=== PATIENT | male | born 1995 | race Caucasian/White ===

== ENCOUNTER 2019-07-07 19:16 | Emergency (ER) | payer OTHER ==
[~2019-07-07] VITALS: Ht 190.5 cm; Wt 112.0 kg
--- NOTE | 2019-07-07 19:53 | NUR ---
PT FAMILY STATED PT HAS NEVER HAD A HEARING PROBLEM IN THE PAST. PT NOW CAN BARLEY HEAR PEOPLE TALKING WITH PEOPLE HAVING TO ALMOST YELL AT PT TO HAVE HIM HEAR THEM.
[2019-07-07] MEDS ORDERED: NALOXONE 0.4 MG/ML, 1ML IVPush PRN (20:30)
[2019-07-07] MEDS ORDERED: NALOXONE 0.4 MG/ML, 1ML ONE (20:32)
[2019-07-07 20:39] LABS: MEAN CORPUSCULAR HEMOGLOBIN 28.5 pg (27.5-34.5); MEAN CORPUSCULAR HGB CONC 33.6 g/dL (33.2-36.2); PLATELET COUNT 401 x10^3/uL (130-400); RED BLOOD COUNT 5.15 x10^6/uL (4.38-5.82); RED CELL DISTRIBUTION WIDTH 12.3 % (9.4-14.8)
[2019-07-07 20:48] LABS: ALANINE AMINOTRANSFERASE 59 U/L (12-78); ALBUMIN 4.1 g/dL (3.4-5.0); ANION GAP 8 mmol/L (5-15); CALCIUM 7.9 mg/dL (8.5-10.1); CHLORIDE 104 mmol/L (98-107); CREATININE 1.79 mg/dL (0.7-1.3)
[2019-07-07 20:51] LABS: ALKALINE PHOSPHATASE 64 U/L (45-117); BILIRUBIN,TOTAL 0.4 mg/dL (0.2-1.0); SALICYLATE LEVEL < 1.7 mg/dL (2.8-20.0); TOTAL PROTEIN 6.9 g/dL (6.4-8.2)
--- NOTE | 2019-07-07 20:53 | NUR ---
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 PT DENIED ANY PAIN, NUMBNESS AND TINGLING ANYHWERE IN BODY. WHEN TALKING WITH PT YOU HAVE TO REPEAT YOUR SELF MULTIPLE TIMES WITH PT SAYING "WHAT OR ONE MORE TIME". PT APPEARS TO RESPOND BETTER WHEN YOU TALK TO PT LOUDER. PT IS STILL LETHARGIC AFTER AN ADDITIONAL 0.4MG OF NARCAN BUT IS EASLY AWOKEN. PT HAVING HOT AND COLD FLASHES AND IS VISIBLEY SWEATING, WITH PT SAYING HE IS COLD THEN PT SAYING HE IS HOT WITHIN 5 MIN OF EACH OTHER.
[2019-07-07 20:57] LABS: MD YES
[2019-07-07 21:01] LABS: BAND#(MANUAL) 3.54 x10^3/uL; BANDS%(MANUAL) 17 % (0-7); LYMPH#(MANUAL) 1.46 x10^3/uL (1-3.4); LYMPHS% (MANUAL) 7 % (22-44); MONOS#(MANUAL) 1.46 x10^3/uL (0.3-2.7); MONOS% (MANUAL) 7 % (2-9); SEG#(MANUAL) 14.35 x10^3/uL (1.8-6.8); SEGS% (MANUAL) 69 % (42-75)
[2019-07-07 21:02] LABS: <PLATELET ESTIMATE> INCREASED; <PLT MORPHOLOGY> NORMAL PLT MORPH; <RBC MORPHOLOGY> NORMAL
--- NOTE | 2019-07-07 21:34 | NUR ---
PT BLOOD SUGAR AT 69, PT WAS PROVIDED OJ AND PEANUT BUTTER WITH CRACKERS AND BLOOD SUGAR WILL BE REASSESSED.
[2019-07-07 22:21] LABS: AMPHETAMINE SCREEN, URINE Negative (Negative); BARBITURATE SCREEN, URINE Negative (Negative); BENZODIAZEPINE SCREEN, URINE Negative (Negative); CANNABINOID SCREEN, URINE Negative (Negative); COCAINE SCREEN, URINE Negative (Negative); METHADONE SCREEN, URINE Negative (Negative); OPIATE SCREEN, URINE Negative (Negative)
[2019-07-07 23:17] VITALS: BP 119/72
== END 2019-07-08 00:54 | disposition home or self-care (01) ==
LOC: ED 07-08 00:45
DX: T40.0X1A Poisoning by opium, accidental (unintentional), initial encounter (principal); J96.01 Acute respiratory failure with hypoxia; F11.10 Opioid abuse, uncomplicated; Y92.89 Other specified places as the place of occurrence of the external cause
CPT/HCPCS: 36415; 71045; 80053; 80307; 85025; 96374; 99291; J2310

== ENCOUNTER 2019-09-07 02:14 | Emergency (ER) | payer OTHER ==
[~2019-09-07] VITALS: Ht 190.5 cm; Wt 109.0 kg
--- NOTE | 2019-09-07 02:50 | NUR ---
Pt placed on 4 lpm O2 to maintain SpO2 above 90%. Pt continues to sleep in the room.
[2019-09-07] MEDS ORDERED: NALOXONE 1 MG/ML, 2ML ONE ×2 (02:53→05:04)
[2019-09-07] MEDS ORDERED: NALOXONE 1 MG/ML, 2ML IVPush ONE ×2 (03:00→05:30)
--- NOTE | 2019-09-07 03:02 | NUR ---
Pt given 1 mg Narcan IV for persistent low SpO2 readings. Pt is now more awake with SpO2 of 96% at room air.
--- NOTE | 2019-09-07 03:14 | NUR ---
Pt placed on 2lpm O2 for SpO2 readings of 88% at room air post Narcan.
[2019-09-07 03:35] LABS: BASOPHILS # (AUTO) 0.04 x10^3/uL (0-0.1); BASOPHILS % (AUTO) 0 % (0-1); EOSINOPHILS # (AUTO) 0.09 x10^3/uL (0-0.4); EOSINOPHILS % (AUTO) 1 % (1-7); LYMPHOCYTES # (AUTO) 0.86 x10^3/uL (1-3.4); LYMPHOCYTES % (AUTO) 8 % (22-44); MD NO; MEAN CORPUSCULAR HEMOGLOBIN 28.4 pg (27.5-34.5); MEAN CORPUSCULAR HGB CONC 33.7 g/dL (33.2-36.2); MEAN CORPUSCULAR VOLUME 84.3 fL (81-97); MEAN PLATELET VOLUME 7.6 fL (7.4-10.4); MONOCYTES # (AUTO) 0.63 x10^3/uL (0.2-0.8); MONOCYTES % (AUTO) 6 % (2-9); NEUTROPHILS # (AUTO) 8.63 x10^3/uL (1.8-6.8); NEUTROPHILS % (AUTO) 84 % (42-75); PLATELET COUNT 342 x10^3/uL (130-400); RED CELL DISTRIBUTION WIDTH 12.9 % (9.4-14.8)
[2019-09-07 03:47] LABS: ALBUMIN 3.8 g/dL (3.4-5.0); ANION GAP 5 mmol/L (5-15); CALCIUM 8.5 mg/dL (8.5-10.1); CHLORIDE 108 mmol/L (98-107)
[2019-09-07 03:48] LABS: CREATININE 1.17 mg/dL (0.7-1.3)
--- NOTE | 2019-09-07 04:58 | NUR ---
Pt's father now at bedside and pt is more awake in room. Will trial pt off O2 and monitor.
--- NOTE | 2019-09-07 05:39 | NUR ---
Pt given Narcan again for low SpO2 readings at room air. Pt improved initially but is now on 2 lpm O2 again for SpO2 readings of 87% at room air. Will continue to monitor.
--- NOTE | 2019-09-07 06:09 | NUR ---
Pt ambulated to bathroom without assistance or complication. Pt had room air SpO2 of 88% after ambulation. Pt placed back on 2 lpm O2.
--- NOTE | 2019-09-07 06:54 | NUR ---
REPORT RECEIVED FROM ALISON [facility].
[2019-09-07 07:07] VITALS: BP 123/78
--- NOTE | 2019-09-07 07:09 | NUR ---
pt's spo2 keeps above 92% without oxygan. edmd notified. pt states"i feel much better."
--- NOTE | 2019-09-07 07:16 | NUR ---
Patient given discharge instructions and they have confirmed that they understand the instructions. Patient ambulatory with steady gait.
== END 2019-09-07 07:17 | disposition home or self-care (01) ==
LOC: ED 05:40
DX: J96.01 Acute respiratory failure with hypoxia (principal); T40.2X1A Poisoning by other opioids, accidental (unintentional), initial encounter; G92 Toxic encephalopathy; F11.10 Opioid abuse, uncomplicated; F19.129 Other psychoactive substance abuse with intoxication, unspecified; Y92.89 Other specified places as the place of occurrence of the external cause
CPT/HCPCS: 36415; 71045; 80048; 82040; 85025; 93005; 96374; 96376; 99291; J2310

== ENCOUNTER 2019-09-18 16:19 | Emergency (ER) | payer OTHER ==
[~2019-09-18] VITALS: Ht 190.5 cm; Wt 235.0 kg
--- NOTE | 2019-09-18 16:39 | NUR ---
Pt BIB [facility] due to being called by Drew SCHNEIDER for abnormal behavior outside of [facility]. PD informed [facility] that pt had been walking in and out of the building, talking to himself, diaphoretic and hyperactive. [facility] informed nursing that pt was still talking to self during ride to hospital, initially had a heart rate of 200 that decreased to 150 after a 900 ml fluid bolus en route. Pt denied any drug use other than taking a percocet in the pm on 09/16, also denied a history of mental health illnesses. Pt still diaphoretic, changed into gown, rushed speech, heart rate of 120-150, given call light, laying on gurney, denies additional needs at this time, even respirations, placed on NC 2L O2, on monitor, WCTM.
[2019-09-18] MEDS ORDERED: SODIUM CHLORIDE 0.9% 1,000 ML IV ONE (16:59)
[2019-09-18] MEDS ORDERED: LORazepam 2 MG/ML, 1ML IVPush ONE ×2 (17:00→18:30)
[2019-09-18] MEDS ORDERED: SODIUM CHLORIDE 0.9% 1,000ML IVBOLUS ONE ×2 (17:00→18:30)
[2019-09-18] MEDS ORDERED: LORazepam 2 MG/ML, 1ML ONE ×2 (17:07→18:20)
[2019-09-18 17:27] LABS: BASOPHILS # (AUTO) 0.08 x10^3/uL (0-0.1); BASOPHILS % (AUTO) 1 % (0-1); EOSINOPHILS # (AUTO) 0.01 x10^3/uL (0-0.4); EOSINOPHILS % (AUTO) 0 % (1-7); LYMPHOCYTES # (AUTO) 1.56 x10^3/uL (1-3.4); LYMPHOCYTES % (AUTO) 12 % (22-44); MD NO; MEAN CORPUSCULAR HEMOGLOBIN 28.1 pg (27.5-34.5); MEAN CORPUSCULAR HGB CONC 33.4 g/dL (33.2-36.2); MEAN CORPUSCULAR VOLUME 84.2 fL (81-97); MEAN PLATELET VOLUME 7.6 fL (7.4-10.4); MONOCYTES # (AUTO) 0.62 x10^3/uL (0.2-0.8); MONOCYTES % (AUTO) 5 % (2-9); NEUTROPHILS # (AUTO) 10.58 x10^3/uL (1.8-6.8); NEUTROPHILS % (AUTO) 82 % (42-75); PLATELET COUNT 344 x10^3/uL (130-400); RED BLOOD COUNT 5.53 x10^6/uL (4.38-5.82); RED CELL DISTRIBUTION WIDTH 12.6 % (9.4-14.8)
--- NOTE | 2019-09-18 17:30 | NUR ---
Late Entry: Pt in [facility], still has rushed speech, skin is slightly moist no excessive diaphoresis noted, NAD, denies additional needs at this time. Call light within reach, pt given water for comfort, WCTM.
[2019-09-18 17:37] LABS: ALANINE AMINOTRANSFERASE 28 U/L (12-78); ALBUMIN 3.9 g/dL (3.4-5.0); ANION GAP 6 mmol/L (5-15); CALCIUM 8.4 mg/dL (8.5-10.1); CHLORIDE 111 mmol/L (98-107); CREATININE 1.43 mg/dL (0.7-1.3); SALICYLATE LEVEL < 1.7 mg/dL (2.8-20.0)
[2019-09-18 17:39] LABS: ALKALINE PHOSPHATASE 62 U/L (45-117); BILIRUBIN,TOTAL 0.3 mg/dL (0.2-1.0)
[2019-09-18 18:20] LABS: AMPHETAMINE SCREEN, URINE Negative (Negative); BARBITURATE SCREEN, URINE Negative (Negative); BENZODIAZEPINE SCREEN, URINE Positive (Negative); CANNABINOID SCREEN, URINE Negative (Negative); COCAINE SCREEN, URINE Negative (Negative); METHADONE SCREEN, URINE Negative (Negative); OPIATE SCREEN, URINE Negative (Negative)
--- NOTE | 2019-09-18 18:26 | NUR ---
Late Entry: Pt in [facility], still has rushed speech, skin is slightly moist no excessive diaphoresis noted, NAD, denies additional needs at this time. Urine sample walked to lab. Call light within reach, pt given water for comfort, WCTM.
--- NOTE | 2019-09-18 18:27 | NUR ---
Urine sample walked to lab waiting on results. Pt resting in [facility] on phone with father, NAD, call light within reach, WCTM
--- NOTE | 2019-09-18 18:58 | NUR ---
Bedside report to Pavel SOL, pt care transferred at this time.
[2019-09-18 19:04] LABS: MICROSCOPIC INDICATED
[2019-09-18 19:16] LABS: CULTURE INDICATED? YES
[2019-09-18 21:08] VITALS: BP 128/82
== END 2019-09-18 21:11 | disposition home or self-care (01) ==
LOC: ED 19:55
DX: R00.0 Tachycardia, unspecified (principal); F41.9 Anxiety disorder, unspecified; N17.8 Other acute kidney failure; R80.9 Proteinuria, unspecified; R94.31 Abnormal electrocardiogram [ECG] [EKG]
CPT/HCPCS: 36415; 71045; 80053; 80307; 81001; 82550; 85025; 87086; 93005; 96374; 99285; J2060; J7030; 96361

== ENCOUNTER 2019-12-16 13:49 | Emergency (ER) | payer OTHER ==
[~2019-12-16] VITALS: Ht 193 cm; Wt 113.8 kg
[2019-12-16] MEDS ORDERED: ADENOSINE 6 MG/2 ML ONE (14:05)
[2019-12-16] MEDS ORDERED: DILTIAZEM 5 MG/ML, 5ML ONE (14:06)
[2019-12-16] MEDS ORDERED: SODIUM CHLORIDE 0.9% 1,000ML IVBOLUS ONE ×2 (14:30→16:00)
[2019-12-16] MEDS ORDERED: SODIUM CHLORIDE 0.9% 1,000 ML IV ONE (14:30)
[2019-12-16] MEDS ORDERED: SODIUM CHLORIDE FLUSH 10ML SYR IVF ONE (14:30)
--- NOTE | 2019-12-16 14:30 | NUR ---
PT PULLED ANOTHER IV. NEW IV PLACED AND WRAPPED WITH COBAN.
[2019-12-16 14:48] LABS: BASOPHILS # (AUTO) 0.08 x10^3/uL (0-0.1); BASOPHILS % (AUTO) 1 % (0-1); EOSINOPHILS # (AUTO) 0.05 x10^3/uL (0-0.4); EOSINOPHILS % (AUTO) 0 % (1-7); LYMPHOCYTES # (AUTO) 1.87 x10^3/uL (1-3.4); LYMPHOCYTES % (AUTO) 17 % (22-44); MD NO; MEAN CORPUSCULAR HEMOGLOBIN 28.8 pg (27.5-34.5); MEAN CORPUSCULAR HGB CONC 34.1 g/dL (33.2-36.2); MEAN CORPUSCULAR VOLUME 84.4 fL (81-97); MEAN PLATELET VOLUME 8.1 fL (7.4-10.4); MONOCYTES % (AUTO) 6 % (2-9); NEUTROPHILS # (AUTO) 8.53 x10^3/uL (1.8-6.8); NEUTROPHILS % (AUTO) 76 % (42-75); PLATELET COUNT 438 x10^3/uL (130-400); RED BLOOD COUNT 5.73 x10^6/uL (4.38-5.82)
[2019-12-16 14:57] LABS: ALANINE AMINOTRANSFERASE 34 U/L (12-78); ALBUMIN 4.7 g/dL (3.4-5.0); ANION GAP 9 mmol/L (5-15); CALCIUM 9.2 mg/dL (8.5-10.1); CHLORIDE 108 mmol/L (98-107); CREATININE 1.92 mg/dL (0.7-1.3)
--- NOTE | 2019-12-16 15:00 | NUR ---
PT EXITING BED WITHOUT CALLING FOR HELP CAUSING MONITOR LEADS TO BE REMOVED. PT EDUCATED TO USE CALL LIGHT BEFORE EXITING BED. PT VERBALIZES UNDERSTANDING.
[2019-12-16 15:01] LABS: ALKALINE PHOSPHATASE 68 U/L (45-117); BILIRUBIN,TOTAL 0.6 mg/dL (0.2-1.0); CREATINE KINASE, TOTAL 290 U/L (39-308); TROPONIN I 0.045 ng/mL (0.000-0.045)
--- NOTE | 2019-12-16 15:30 | NUR ---
PT CONTINUES TO EXIT BED WITHOUT CALLING FOR HELP. MONITOR LEADS REMOVED. PT UNABLE TO PROVIDE UA.
--- NOTE | 2019-12-16 15:50 | NUR ---
MULTIPLE ATTEMPTS TO OBTAIN UA. PT STATES HE IS UNABLE TO URINATE. OFFERED STRAIGHT CATH. PT REFUSES AT THIS TIME.
[2019-12-16 17:31] VITALS: BP 125/80
[2019-12-16 18:37] LABS: MICROSCOPIC INDICATED
[2019-12-16 18:38] LABS: AMPHETAMINE SCREEN, URINE Negative (Negative); BARBITURATE SCREEN, URINE Negative (Negative); BENZODIAZEPINE SCREEN, URINE Negative (Negative); CANNABINOID SCREEN, URINE Negative (Negative); COCAINE SCREEN, URINE Negative (Negative); METHADONE SCREEN, URINE Negative (Negative); OPIATE SCREEN, URINE Negative (Negative)
== END 2019-12-16 18:49 | disposition home or self-care (01) ==
LOC: ED 14:31
DX: R00.0 Tachycardia, unspecified (principal); N28.9 Disorder of kidney and ureter, unspecified; T67.3XXA Heat exhaustion, anhydrotic, initial encounter; E86.0 Dehydration; E86.1 Hypovolemia; R50.9 Fever, unspecified
CPT/HCPCS: 36415; 71045; 80053; 80307; 81001; 82550; 83615; 83735; 84443; 84484; 85025; 87086; 93005; 96360; 96361; 99285; J7030